=== PATIENT | male | born 1990 | race Caucasian/White ===

== ENCOUNTER 2021-08-04 21:10 | Emergency (ER) | payer MEDICARE ==
[~2021-08-04 21:10] MED LIST: LEXAPRO20 MG PO; PERCOCET 5-3251 EACH PO; REMERON30 MG PO; TESTOSTERO200 MG/11 IM
[2021-08-04 22:21] LABS: BASOPHIL 0 % (0-2); EOSINOPHIL 1.2 % (0-5); HCT 43.9 % (42.0-52.0); HGB 14.3 g/dl (13.2-18.0); LYMPHOCYTE 10.3 % (15-48); MCH 27.3 pg (25.0-31.0); MCHC 32.6 g/dL (32.0-36.0); MCV 83.9 fL (78.0-100.0); MONOCYTE 9.6 % (0-12); MPV 10.5 fL (6.0-9.5); NEUTROPHIL 78.6 % (41-80); NRBC 0; PLT 247 K/uL (150-400); RBC 5.23 M/uL (4.70-6.00); RDW 14.3 % (11.5-14.0); WBC 5.9 K/uL (4.0-10.5)
[2021-08-04 22:21] LABS: BILIRUBIN NEGATIVE (NEGATIVE); BLOOD NEGATIVE Ery/uL (NEGATIVE); CLARITY CLEAR (CLEAR); COLOR YELLOW (YELLOW); GLUCOSE (U) NORMAL (NORMAL); LEUKOCYTES NEGATIVE Leu/uL (NEGATIVE); NITRITE NEGATIVE (NEGATIVE); PROTEIN TRACE (LOW) mg/dL (NEGATIVE); SPECIFIC GRAVITY >=1.030 (1.001-1.030)
[2021-08-04 22:38] LABS: BILIRUBIN - TOTAL 0.5 mg/dL (0.2-1.0); BUN/CREAT RATIO (CALC) 9.9 RATIO; CREATININE 0.91 mg/dL (0.67-1.17); GLOBULIN (CALCULATION) 3.8 g/dL; POTASSIUM 3.3 mmol/L (3.5-5.1); TOTAL PROTEIN 7.8 g/dL (6.4-8.2)
[2021-08-04] MEDS ORDERED: ONDANSETRON HCL4 MG PO (22:57)
== END 2021-08-04 23:30 | disposition home or self-care (01) ==
LOC: FER 21:10
PROVIDERS: Nurse Practitioner Family
DX: K52.9 Noninfective gastroenteritis and colitis, unspecified (principal)
CPT/HCPCS: 36415; 80053; 81003; 82150; 83690; 85025; J7030